=== PATIENT | female | born 1995 | race African-American/Black ===

== ENCOUNTER 2020-09-24 15:41 | Emergency (ER) | payer OTHER ==
[~2020-09-24] VITALS: Ht 175.3 cm; Wt 39.3 kg
[2020-09-24] MEDS ORDERED: AUGM875T28 PO (17:22)
[2020-09-24 17:33] VITALS: BP 135/82
== END 2020-09-24 17:35 | disposition home or self-care (01) ==
LOC: M ED 15:41
DX: K02.9 Dental caries, unspecified (principal)